=== PATIENT | male | born 1950 | race Caucasian/White ===

== ENCOUNTER 2023-08-27 10:53 | Emergency (ER) | payer MEDICARE, BC | END 2023-08-27 12:45 | disposition home or self-care (01) | LOC: JD.ED 10:53 | DX: M16.0 Bilateral primary osteoarthritis of hip (principal); M47.816 Spondylosis without myelopathy or radiculopathy, lumbar region; I10 Essential (primary) hypertension; Z79.899 Other long term (current) drug therapy | CPT/HCPCS: 73502-26-RT; 73502-RT; 99283; 99284 ==